=== PATIENT | female | born 1970 | race Two or more races ===

== ENCOUNTER 2022-05-24 15:19 | Emergency (ER) | payer BC, OTHER ==
[~2022-05-24] VITALS: Ht 157.5 cm; Wt 81.7 kg
[2022-05-24 16:09] VITALS: BP 105/76
== END 2022-05-24 18:40 | disposition home or self-care (01) ==
LOC: ER 15:19
DX: R60.0 Localized edema (principal); I10 Essential (primary) hypertension; I25.2 Old myocardial infarction
CPT/HCPCS: 93005; 93970